=== PATIENT | female | born 1950 | race Caucasian/White ===

== ENCOUNTER 2019-12-07 09:34 | Day surgery (SDC) | payer OTHER ==
[~2019-12-07 09:34] MED LIST: ULTRACET PO; ZIAC 2.5-6.25 M1 TAB
== END 2019-12-07 13:20 | disposition home or self-care (01) ==
LOC: AMB-ENDOS 09:34
PROVIDERS: ATTEND Surgery
DX: D12.3 Benign neoplasm of transverse colon (principal); D12.5 Benign neoplasm of sigmoid colon; K62.7 Radiation proctitis; K64.4 Residual hemorrhoidal skin tags; Z20.828 Contact with and (suspected) exposure to other viral communicable diseases